=== PATIENT | male | born 1960 | race Two or more races ===

== ENCOUNTER → 2025-08-05 | Outpatient (CLI) | payer MEDICAID ==
[2025-08-05 10:51] LABS: Hematocrit 47.4 % (41.0-53.0); Hemoglobin 16.0 g/dL (13.5-17.5); Mean Corpuscular Hemoglobin 29.0 pg (28.0-32.0); Mean Corpuscular Volume 85.8 fL (80.0-100.0); Nucleated Red Blood Cells % 0.1 %
[2025-08-05 10:58] LABS: Urine Protein, UAD Negative (Negative)
[2025-08-05 11:22] LABS: Alanine Aminotransferase 29 U/L (7-40); Albumin 4.5 g/dL (3.2-4.8); Alkaline Phosphatase 80 U/L (46-116); Anion Gap 9 (5-15); BUN/Creatinine Ratio 15.3 (10.0-20.0); Bilirubin, Total 1.1 mg/dL (0.2-1.0); Blood Urea Nitrogen 20 mg/dL (9-23); Calcium 9.4 mg/dL (8.7-10.4); Carbon Dioxide 29 mmol/L (20-31); Chloride 99 mmol/L (98-107); HDL Cholesterol 48 mg/dL (40-59); Potassium 5.1 mmol/L (3.5-5.1); Sodium 137 mmol/L (136-145); Total Protein 7.4 g/dL (5.7-8.2)
[2025-08-05 11:24] LABS: Cholesterol 222 mg/dL (< 200); Glucose 362 mg/dL (74-106); Triglycerides 186 mg/dL (< 150)
[2025-08-05 11:33] LABS: Free T4 (Free Thyroxine) 1.43 ng/dL (0.89-1.76)
[2025-08-05 12:13] LABS: Hepatitis A Total Antibody Positive (Negative); Hepatitis B Surface Antigen Negative (Negative); Hepatitis C Antibody Negative (Negative)
== END | disposition home or self-care (01) ==
LOC: LAB 09:37 → EDSEX 09:37
PROVIDERS: ATTEND Internal Medicine
DX: E11.22 Type 2 diabetes mellitus with diabetic chronic kidney disease (principal); N18.9 Chronic kidney disease, unspecified
CPT/HCPCS: 36415; 80053; 80061; 81001; 82043; 82274; 82306; 82607; 83036; 84153; 84439; 84443; 85025; 86703; 86704; 86706; 86708; 86803; 87340

== ENCOUNTER 2025-08-29 06:40 | Outpatient (CLI) | payer MEDICAID ==
[2025-08-29 07:18] LABS: Albumin 4.4 g/dL (3.2-4.8); Anion Gap 10 (5-15); BUN/Creatinine Ratio 9.3 (10.0-20.0); Blood Urea Nitrogen 10 mg/dL (9-23); Calcium 10.0 mg/dL (8.7-10.4); Carbon Dioxide 29 mmol/L (20-31); Chloride 103 mmol/L (98-107); Potassium 5.0 mmol/L (3.5-5.1); Sodium 142 mmol/L (136-145); Total Protein 7.3 g/dL (5.7-8.2)
[2025-08-29 07:19] LABS: Bilirubin, Total 0.6 mg/dL (0.2-1.0)
[2025-08-29 07:27] LABS: Alanine Aminotransferase 46 U/L (7-40); Alkaline Phosphatase 147 U/L (46-116); Glucose 137 mg/dL (74-106)
== END 2025-08-29 17:00 | disposition home or self-care (01) ==
LOC: LAB 06:40
PROVIDERS: ATTEND Internal Medicine
DX: E11.22 Type 2 diabetes mellitus with diabetic chronic kidney disease (principal); N18.9 Chronic kidney disease, unspecified
CPT/HCPCS: 36415; 80053